=== PATIENT | female | born 1980 | race Caucasian/White ===

== ENCOUNTER 2017-07-14 13:33 | Emergency (ER) | payer SELFPAY ==
[~2017-07-14] VITALS: Ht 172.7 cm; Wt 99.8 kg
[~2017-07-14 13:33] MED LIST: AMITRIPTYLINE; AMLO5TAB2 PO; FERR134T PO; HCTZ; HYDR25TA4 PO; LEVO150T6 PO; LEVOTHYROXINE; LISINOPRIL; LISINOPRIL PO; MTF500T PO; VERA180C2 PO
[2017-07-14] MEDS ORDERED: NS IV 1000 ML 1,000 ML IV ONE (14:13)
--- NOTE | 2017-07-14 14:25 | ED General ---
General Chief Complaint: Dizziness/Syncope Stated Complaint: DIZZINESS, [place] Nursing Triage Note: c/o dizziness. Feels like room is spinning. Nausea reported. Onset Sunday. Seen by Dr. Angel on Sun and started on Dexamethasone and Zofran. Nursing Sepsis Screen: No Definite Risk Source of Information: Patient Exam Limitations: No Limitations History of Present Illness Time Seen by Provider: 14:05 Initial Comments Here with report of dizziness and nausea that has been going on for 4 days. Seen by her primary care provider and started on Zofran and was also given a steroid. States that it was a little better but now worse today. She took one of her Zofran dose for the nausea today and that helped some but she is still dizzy. She does admit to being diabetic and having high blood pressure that is not well-controlled currently because she's not been able to take her meds because of the nausea. He does admit to having urinary tract symptoms over the last 3 weeks but states that has been a little better recently. Admits that she has not urinated much today. Last bowel movement was a few days ago as well. Timing/Duration: 4-5 Days Severity: Moderate Associated Systoms: No Chest Pain, No Cough, No Fever/Chills, Nausea/Vomiting, No Shortness of Air, No Weakness Allergies and Home Medications Allergies Coded Allergies: Penicillins (Unverified Adverse Reaction, Mild, RASH, 02/23/10) Home Medications Amlodipine Besylate 5 Mg Tablet, 5 MG PO DAILY, #60 Prescribed by: RACHID GOTTI on 05/28/16 1032 Ferrous Sulfate 134 Mg Tablet, 134 MG PO BID, #60 Prescribed by: NICOLA CROWDER on 05/28/16 1223 Hydrochlorothiazide 25 Mg Tablet, 25 MG PO DAILY, #60 Prescribed by: RACHID GOTTI on 05/28/16 1034 Levothyroxine Sodium 150 Mcg Tablet, 150 MCG PO DAILY, #60 Prescribed by: RACHID GOTTI on 05/28/16 1037 Metformin Hcl 500 Mg Tab, 1,000 MG PO BID, (Reported) Verapamil Hcl 180 Mg Cap24h.pel, 1 EACH PO BID, (Reported) Constitutional: No chills, dizziness, No fever, malaise EENTM: nose congestion, throat pain, other (bilateral sinus pain) Respiratory: No cough, No short of breath Cardiovascular: No chest pain, No edema, No palpitations Gastrointestinal: nausea, No vomiting Genitourinary: see HPI, decreased output, dysuria Musculoskeletal: no symptoms reported Skin: no symptoms reported All Other Systems Reviewed Negative Unless Noted: Yes Past Amegifo-Bycvdx-Idhddb Hx Patient Social History Alcohol Use: Denies Use Recreational Drug Use: No Smoking Status: Former Smoker Type Used: Cigarettes Former Smoker, Quit: Jun 19, 2003 2nd Hand Smoke Exposure: Yes Recent Foreign Travel: No Contact w/Someone Who Travel: No Recent Infectious Disease Expo: No Recent Hopitalizations: No Seasonal Allergies Seasonal Allergies: No Surgeries History of Surgeries: No Respiratory History of Respiratory Disorde: No Cardiovascular History of Cardiac Disorders: Yes Cardiac Disorders: Hypertension Neurological History of Neurological Disord: No Reproductive System Hx Reproductive Disorders: Yes Female Reproductive Disorders: Menstrual Problems, Polycystic Ovarian Dis Gastrointestinal History of Gastrointestinal Di: No Musculoskeletal History of Musculoskeletal Dis: No Endocrine History of Endocrine Disorders: Yes Endocrine Disorders: Hypothyroidsim, Diabetes, Non-Insulin dep HEENT Loss of Vision: Denies Hearing Impairment: Denies Cancer History of Cancer: No Psychosocial History of Psychiatric Problem: No Integumentary History of Skin or Integumenta: No Blood Transfusions History of Blood Disorders: No Adverse Reaction to a Blood Tr: No Reviewed Nursing Assessment Reviewed/Agree w Nursing PMH: Yes Family Medical History Significant Family History: Hypertension Family Medial History: Arthritis 19 FATHER Kidney disease 19 FATHER Thyroid disease 19 FATHER Physical Exam Vital Signs Vital Sign - Last 12Hours 07/14/17 13:51 Temp 97.4 Pulse 70 Resp 18 B/P (MAP) 181/104 Pulse Ox 98 Capillary Refill : Less Than 3 Seconds General Appearance: No Apparent Distress, WD/WN HEENT: PERRL/EOMI, Pharynx Normal, Pharyngeal Erythema, TM Abnormal (L) ( bulging), TM Abnormal (R) (bulging), No Tonsillar Exudate, Other (no nystagmus noted) Neck: Non Tender, Supple Respiratory: Lungs Clear, Normal Breath Sounds Cardiovascular: Regular Rate, Rhythm, No Murmur Gastrointestinal: Non Tender, Soft Back: Normal Inspection, No CVA Tenderness, No Vertebral Tenderness Extremity: Normal Range of Motion, Non Tender Neurologic/Psychiatric: Alert, Oriented x3, Normal Mood/Affect Skin: Normal Color, Warm/Dry Progress/Results/Core Measures Results/Orders Lab Results Laboratory Tests Test 07/14/17 14:30 07/14/17 14:45 Range/Units Urine Color YELLOW Urine Clarity SLIGHTLY CLOUDY Urine pH 6 5-9 Urine Specific [place] 1.010 L 1.016-1.022 Urine Protein 1+ H NEGATIVE Urine Glucose (UA) 2+ H NEGATIVE Urine Ketones NEGATIVE NEGATIVE Urine Nitrite NEGATIVE NEGATIVE Urine Bilirubin NEGATIVE NEGATIVE Urine Urobilinogen NORMAL NORMAL MG/DL Urine Leukocyte Esterase 1+ H NEGATIVE Urine RBC (Auto) NEGATIVE NEGATIVE Urine RBC NONE /HPF Urine WBC RARE /HPF Urine Squamous Epithelial Cells 2-5 /HPF Urine Crystals NONE /LPF Urine Bacteria TRACE /HPF Urine Casts NONE /LPF Urine Mucus NEGATIVE /LPF Urine Culture Indicated NO White Blood Count 12.6 H 4.3-11.0 10^3/uL Red Blood Count 5.25 4.35-5.85 10^6/uL Hemoglobin 14.0 11.5-16.0 G/DL Hematocrit 42 35-52 % Mean Corpuscular Volume 79 L 80-99 FL Mean Corpuscular Hemoglobin 27 25-34 PG Mean Corpuscular Hemoglobin Concent 34 32-36 G/DL Red Cell Distribution Width 17.1 H 10.0-14.5 % Platelet Count 192 130-400 10^3/uL Mean Platelet Volume 11.7 H 7.4-10.4 FL Neutrophils (%) (Auto) 67 42-75 % Lymphocytes (%) (Auto) 27 12-44 % Monocytes (%) (Auto) 6 0-12 % Eosinophils (%) (Auto) 0 0-10 % Basophils (%) (Auto) 0 0-10 % Neutrophils # (Auto) 8.5 H 1.8-7.8 X 10^3 Lymphocytes # (Auto) 3.4 1.0-4.0 X 10^3 Monocytes # (Auto) 0.7 0.0-1.0 X 10^3 Eosinophils # (Auto) 0.0 0.0-0.3 10^3/uL Basophils # (Auto) 0.0 0.0-0.1 10^3/uL Sodium Level 139 135-145 MMOL/L Potassium Level 3.8 3.6-5.0 MMOL/L Chloride Level 103 98-107 MMOL/L Carbon Dioxide Level 27 21-32 MMOL/L Anion Gap 9 5-14 MMOL/L Blood Urea Nitrogen 16 7-18 MG/DL Creatinine 0.79 0.60-1.30 MG/DL Estimat Glomerular Filtration Rate > 60 BUN/Creatinine Ratio 20 Glucose Level 129 H 70-105 MG/DL Calcium Level 9.9 8.5-10.1 MG/DL Magnesium Level 1.7 L 1.8-2.4 MG/DL Total Bilirubin 0.7 0.1-1.0 MG/DL Aspartate Amino Transf (AST/SGOT) 61 H 5-34 U/L Alanine Aminotransferase (ALT/SGPT) 71 H 0-55 U/L Alkaline Phosphatase 97 40-136 U/L C-Reactive Protein High Sensitivity 0.38 0.00-0.50 MG/DL Total Protein 8.9 H 6.4-8.2 GM/DL Albumin 4.3 3.2-4.5 GM/DL Thyroid Stimulating Hormone (TSH) 3.10 0.35-4.94 UIU/ML My Orders Orders - TAYE DIAZ MD Cbc With Automated Diff (07/14/17 14:13) Comprehensive Metabolic Panel (07/14/17 14:13) Hs C Reactive Protein (07/14/17 14:13) Magnesium (07/14/17 14:13) Thyroid Stimulating Hormone (07/14/17 14:13) Ua Culture If Indicated (07/14/17 14:13) Saline Lock/Iv-Start (07/14/17 14:13) Ns Iv 1000 Ml (Sodium Chloride 0.9%) (07/14/17 14:13) Medications Given in ED Current Medications Medications Dose Ordered Sig/Mariana Route Start Time Stop Time Status Last Admin Dose Admin Sodium Chloride 1,000 ml @ 0 mls/hr Q0M ONCE IV 07/14/17 14:13 07/14/17 14:15 DC 07/14/17 14:30 1,000 MLS/HR Vital Signs/I&O Vital Sign - Last 12Hours 07/14/17 13:51 Temp 97.4 Pulse 70 Resp 18 B/P (MAP) 181/104 Pulse Ox 98 Blood Pressure Mean: 129 Progress Note : Progress Note Seen and evaluated. Due to the length of time for the symptoms, IV, labs, UA and normal saline 1 L bolus ordered. We will get a CT head to evaluate for sinusitis given moderate nasal congestion and pharyngeal erythema. Monitor patient. Patient declined CT scan. Monitor patient. 1545: Labs reviewed with the patient. We will go ahead and treat for possible sinusitis given the patient's tenderness and purulent discharge from the nose. She reports penicillin allergy but then states that she can take amoxicillin and has successfully without any problems. She has to pay enrique for her medicines. We will initiate Augmentin 500 twice a day. She is to follow-up with Dr. Angel earlier this week for recheck and further evaluation. Copy of chart for Dr. Angel. Discharged home with return precautions. Patient verbalize understanding instructions and agreement with plan. Departure Impression Impression: Primary Impression: Sinusitis, acute Qualified Codes: J01.90 - Acute sinusitis, unspecified Additional Impression: Dizziness Disposition: HOME, SELF-CARE Condition: Stable Departure-Patient Inst. Decision time for Depature: 15:54 Referrals: VICENTE ANGEL MD (PCP/Family) Primary Care Physician Patient Instructions: Sinusitis, Adult (DC), Vertigo (a Type of Dizziness) (DC) Add. Discharge Instructions: All discharge instructions reviewed with patient and/or family. Voiced understanding. Take medications as directed. You may stop the Dramamine. You may take meclizine 25 mg every 8 hours as needed for dizziness. You can get this over- the-counter. You can ask the pharmacist to assist you with finding the medicine at the pharmacy. Drink plenty of fluids. Return for worse pain, fever , vomiting, weakness, breathing problems or other concerns as needed. Follow- up with Dr. Angel in 2-3 days for recheck and further evaluation. Scripts Amoxicillin/Potassium Clav (Augmentin 500-125 Tablet) 1 Each Tablet 1 EACH PO BID, #14 TAB Prov: TAYE DIAZ MD 07/14/17 Copy Copies To 1: VICENTE ANGEL MD, TIMOTHY D MD Jul 14, 2017 14:25
[2017-07-14 14:49] LABS: BILIRUBIN,URINE NEGATIVE (NEGATIVE); KETONES,URINE NEGATIVE (NEGATIVE); LEUKOCYTE ESTERASE ,URINE 1+ (NEGATIVE); NITRITE,URINE NEGATIVE (NEGATIVE); PH,URINE 6 (5-9); PROTEIN,URINE 1+ (NEGATIVE); UROBILINOGEN,URINE NORMAL (NORMAL)
[2017-07-14 14:51] LABS: BASOPHILS % (AUTO) 0 % (0-10); EOSINOPHILS % (AUTO) 0 % (0-10); LYMPHOCYTES # (AUTO) 3.4 X 10^3 (1.0-4.0); LYMPHOCYTES % (AUTO) 27 % (12-44); MEAN CORPUSCULAR HEMOGLOBIN 27 PG (25-34); MEAN CORPUSCULAR HGB CONC 34 G/DL (32-36); MEAN CORPUSCULAR VOLUME 79 FL (80-99); MEAN PLATELET VOLUME 11.7 FL (7.4-10.4); MONOCYTES # (AUTO) 0.7 X 10^3 (0.0-1.0); MONOCYTES % (AUTO) 6 % (0-12); NEUTROPHILS # (AUTO) 8.5 X 10^3 (1.8-7.8); NEUTROPHILS % (AUTO) 67 % (42-75); PLATELET COUNT 192 10^3/uL (130-400); RED BLOOD COUNT 5.25 10^6/uL (4.35-5.85); RED CELL DISTRIBUTION WIDTH 17.1 % (10.0-14.5); WHITE BLOOD COUNT 12.6 10^3/uL (4.3-11.0)
[2017-07-14 14:58] LABS: WBC,URINE RARE /HPF
[2017-07-14 15:09] LABS: ALANINE AMINOTRANSFERASE 71 U/L (0-55); ALBUMIN 4.3 GM/DL (3.2-4.5); ANION GAP 9 MMOL/L (5-14); ASPARTATE AMINO TRANSFERASE 61 U/L (5-34); BILIRUBIN,TOTAL 0.7 MG/DL (0.1-1.0); BLOOD UREA NITROGEN 16 MG/DL (7-18); BUN/CREATININE RATIO 20; CALCIUM 9.9 MG/DL (8.5-10.1); CARBON DIOXIDE 27 MMOL/L (21-32); CHLORIDE 103 MMOL/L (98-107); CREATININE SERUM 0.79 MG/DL (0.60-1.30); GFR ESTIMATED > 60; GLUCOSE 129 MG/DL (70-105); MAGNESIUM 1.7 MG/DL (1.8-2.4); POTASSIUM 3.8 MMOL/L (3.6-5.0); SODIUM 139 MMOL/L (135-145); TOTAL PROTEIN 8.9 GM/DL (6.4-8.2); hs C REACTIVE PROTEIN 0.38 MG/DL (0.00-0.50)
[2017-07-14] MEDS ORDERED: AMOX-355 PO (15:56)
[2017-07-14 16:09] VITALS: BP 162/90
== END 2017-07-14 16:09 | disposition home or self-care (01) ==
LOC: EDUNIT# 13:33 → ER 13:34
DX: J01.90 Acute sinusitis, unspecified (principal); R42 Dizziness and giddiness; I10 Essential (primary) hypertension; E03.9 Hypothyroidism, unspecified; E11.9 Type 2 diabetes mellitus without complications; Z87.448 Personal history of other diseases of urinary system; Z79.84 Long term (current) use of oral hypoglycemic drugs; Z87.891 Personal history of nicotine dependence; Z91.14 Patient's other noncompliance with medication regimen
CPT/HCPCS: 36415; 80053; 81000; 83735; 84443; 85025; 86141; 96360

== ENCOUNTER 2017-07-22 19:42 | Emergency (ER) | payer SELFPAY ==
[~2017-07-22] VITALS: Ht 172.7 cm; Wt 99.8 kg
[~2017-07-22 19:42] MED LIST changes: +AMOX-355 PO
--- NOTE | 2017-07-22 20:27 | ED EENT ---
History of Present Illness General Chief Complaint: General Problems/Pain Stated Complaint: THROAT/EAR PAIN Nursing Triage Note: PT TO ED 9 W/ S.O. FOR C/O SORE THROAT, EAR PAIN, CONGESTION. PT REPORTS HAS BEEN SEEN MULTIPLE TIMES OVER THE PAST FEW WEEKS FOR C/O VERTIGO/INNER EAR INFECTION. History of Present Illness Time seen by provider: 20:30 Initial Comments 36-year-old female presents for right ear pain, congestion and sore throat. She has previously seen here on July 142016 and prescribed Augmentin for 7 days. She reports taking all the medication as prescribed. Today she took Tylenol mid afternoon, Advil prior to arrival and Mucinex this morning. She reports that the vertigo is improving, she is able to ambulate without a headache or dizziness. Timing/Duration: intermittent Location: ear (R), throat, facial Prearrival Treatment: over the counter meds Associated Symptoms: No cough, facial pain/swelling, No fever, No malaise, nasal congestion/drainage, No sinus infection, sore throat, No tooth pain Allergies and Home Medications Allergies Coded Allergies: Penicillins (Unverified Adverse Reaction, Mild, RASH, 02/23/10) Home Medications Amlodipine Besylate 5 Mg Tablet, 5 MG PO DAILY, #60 Prescribed by: RACHID GOTTI on 05/28/16 1032 Amoxicillin/Potassium Clav 1 Each Tablet, 1 EACH PO BID, #14 Prescribed by: TAYE DIAZ on 07/14/17 1556 Ferrous Sulfate 134 Mg Tablet, 134 MG PO BID, #60 Prescribed by: NICOLA CROWDER on 05/28/16 1223 Hydrochlorothiazide 25 Mg Tablet, 25 MG PO DAILY, #60 Prescribed by: RACHID GOTTI on 05/28/16 1034 Levothyroxine Sodium 150 Mcg Tablet, 150 MCG PO DAILY, #60 Prescribed by: RACHID GOTTI on 05/28/16 1037 Metformin Hcl 500 Mg Tab, 1,000 MG PO BID, (Reported) Prednisone 20 Mg Tab, 20 MG PO BID, #8 Ref 0 Prescribed by: CAROLYN LEE on 07/22/17 2034 Verapamil Hcl 180 Mg Cap24h.pel, 1 EACH PO BID, (Reported) Review of Systems Constitutional: no symptoms reported, see HPI Ears: See HPI, Pain Throat: see HPI, pain, painful swallowing All Other Systems Reviewed Negative Unless Noted: Yes Past Lwpbagb-Gfjabi-Ksitxj Hx Patient Social History Alcohol Use: Denies Use Recreational Drug Use: No Smoking Status: Former Smoker Type Used: Cigarettes Former Smoker, Quit: Jun 19, 2003 2nd Hand Smoke Exposure: Yes Recent Foreign Travel: No Contact w/Someone Who Travel: No Recent Infectious Disease Expo: No Recent Hopitalizations: No Physical Abuse: No Sexual Abuse: No Mistreated: No Fear: No Seasonal Allergies Seasonal Allergies: No Surgeries History of Surgeries: No Respiratory History of Respiratory Disorde: No Cardiovascular History of Cardiac Disorders: Yes Cardiac Disorders: Hypertension Neurological History of Neurological Disord: No Reproductive System Hx Reproductive Disorders: Yes Female Reproductive Disorders: Menstrual Problems, Polycystic Ovarian Dis Gastrointestinal History of Gastrointestinal Di: No Musculoskeletal History of Musculoskeletal Dis: No Endocrine History of Endocrine Disorders: Yes Endocrine Disorders: Hypothyroidsim, Diabetes, Non-Insulin dep HEENT Loss of Vision: Denies Hearing Impairment: Denies Cancer History of Cancer: No Psychosocial History of Psychiatric Problem: No Suicide Risk Score: 0 Integumentary History of Skin or Integumenta: No Blood Transfusions History of Blood Disorders: No Adverse Reaction to a Blood Tr: No Reviewed Nursing Assessment Reviewed/Agree w Nursing PMH: Yes Family Medical History Significant Family History: Hypertension Family Medial History: Arthritis 19 FATHER Kidney disease 19 FATHER Thyroid disease 19 FATHER Physical Exam Vital Signs Vital Sign - Last 12Hours 07/22/17 19:59 Temp 98.5 Pulse 98 Resp 20 B/P (MAP) 174/100 Pulse Ox 97 O2 Delivery Room Air General Appearance: WD/WN, no apparent distress Eyes: bilateral eye normal inspection, bilateral eye PERRL, bilateral eye EOMI Ears: bilateral ear auricle normal, bilateral ear canal normal, bilateral ear TM normal (with clear effusion but no bulging of the TM) Nose: normal inspection, No active bleeding, No discharge Mouth/Throat: normal mouth inspection, pharynx normal (with clear postnasal drainage) Neck: non-tender, full range of motion, supple, normal inspection, No lymphadenopathy (R), No lymphadenopathy (L) Cardiovascular: normal peripheral pulses, regular rate, rhythm Respiratory: chest non-tender, lungs clear, normal breath sounds Gastrointestinal: normal bowel sounds, non tender, soft Neurologic/Psychiatric: no motor/sensory deficits, alert, normal mood/affect, oriented x 3 Skin: normal color, warm/dry Progress/Results/Core Measures Results/Orders My Orders Orders - CAROLYN LEE Prednisone Tablet (Deltasone Tablet) (07/22/17 20:45) Medications Given in ED Current Medications Medications Dose Ordered Sig/Mariana Route Start Time Stop Time Status Last Admin Dose Admin Prednisone 20 mg ONCE ONCE PO 07/22/17 20:45 07/22/17 20:46 DC 07/22/17 20:40 20 MG Vital Signs/I&O Vital Sign - Last 12Hours 07/22/17 19:59 Temp 98.5 Pulse 98 Resp 20 B/P (MAP) 174/100 Pulse Ox 97 O2 Delivery Room Air Blood Pressure Mean: 124 Departure Impression Impression: Primary Impression: Vertigo Additional Impression: Sinus congestion Disposition: HOME, SELF-CARE Condition: Stable Departure-Patient Inst. Decision time for Depature: 20:25 Referrals: LISA BRAVO DO (PCP) Primary Care Physician VICENTE ANGEL MD (Family) Primary Care Physician Patient Instructions: Sinusitis, Adult (DC) Add. Discharge Instructions: Mixed 2 tablespoons of apple cider vinegar with mother in a small cup of warm water with honey and lemon. Drink twice daily. Christ med sinus rinse irrigation use 3-4 times daily for congestion. Take steroids as prescribed. Follow-up with Dr. Angel in 2-3 days if symptoms are not improving Turned to emergency department if symptoms worsen, temperature greater than 101 , or new problems. Alternate 600 mg ibuprofen and 650 mg of Tylenol every 4 hours for pain or fever. Vestibular exercises, look up on the Internet for home therapy All discharge instructions reviewed with patient and/or family. Voiced understanding. Scripts Prednisone (Prednisone) 20 Mg Tab 20 MG PO BID, #8 TAB 0 Refills Prov: CAROLYN LEE 07/22/17 Copy Copies To 1: VICENTE ANGEL MD, AMY ARNP Jul 22, 2017 20:27
[2017-07-22] MEDS ORDERED: PRD20T PO (20:34)
[2017-07-22 20:40] VITALS: BP 161/99
[2017-07-22] MEDS ORDERED: predniSONE 20 MG TAB PO ONE (20:45)
== END 2017-07-22 20:40 | disposition home or self-care (01) ==
LOC: EDUNIT# 19:42 → ER 19:45
DX: R09.81 Nasal congestion (principal); R42 Dizziness and giddiness; E03.9 Hypothyroidism, unspecified; E11.9 Type 2 diabetes mellitus without complications; I10 Essential (primary) hypertension; Z87.42 Personal history of other diseases of the female genital tract; Z87.891 Personal history of nicotine dependence; Z79.84 Long term (current) use of oral hypoglycemic drugs
CPT/HCPCS: 99283

== ENCOUNTER 2018-08-02 18:03 | Emergency (ER) | payer SELFPAY ==
[~2018-08-02] VITALS: Ht 172.7 cm; Wt 102.1 kg
[~2018-08-02 18:03] MED LIST changes: -AMLO5TAB2 PO; +AMLO5TAB7 PO; +CEFU250T80 PO; +GLIM2TAB PO; +LISI-556 PO; +METF-397 PO; +PRD20T PO
--- NOTE | 2018-08-02 20:21 | Diagnostic Imaging Report ---
INDICATION: Cough and wheezing. COMPARISON STUDY: None. FINDINGS: Two views of the chest demonstrate the lungs to be clear. The heart, mediastinum, pulmonary vascularity and visualized bony thorax are normal. IMPRESSION: Normal chest. Dictated by: Dictated on workstation # [id number]
[2018-08-02] MEDS ORDERED: RX-ALBUTEROL INHALER (PROAIR) 8 GM IH STA (20:46)
--- NOTE | 2018-08-02 20:46 | ED General ---
General Chief Complaint: Cough/Cold/Flu Symptoms Stated Complaint: COUGH/SOB Nursing Triage Note: PT ARRIVES TO ED ROOM #9 WITH C/O COUGH/COLD/FLU SYMPTOMS. PT STATES THAT SHE IS EXPERIENCING RUNNY NOSE, FEVER, PRODUCTIVE COUGH (THICK YLW/GREEN), HEAD CONGESTION, SOB, AND WHEEZING. PT STATES SYMPTOMS STARTED YESTERDAY EVENING. PT'S CURRENT TEMP 100.0. Nursing Sepsis Screen: Possible Sepsis Risk Source of Information: Patient Exam Limitations: No Limitations History of Present Illness Date Seen by Provider: Aug 02, 2018 Time Seen by Provider: 19:42 Initial Comments This 37 year old woman presents to the ER with complaints of febrile illness with associated wheezing, cough, myalgia, night sweats, and sputum that started yesterday. She is a smoker. She is also a diabetic. Her primary care providers Dr. Bravo. Allergies and Home Medications Allergies Coded Allergies: No Known Drug Allergies (Unverified , 03/19/18) Home Medications Amlodipine Besylate 5 Mg Tablet, 5 MG PO DAILY, (Reported) Cefuroxime Axetil 250 Mg Tablet, 250 MG PO BID Prescribed by: LISA BRAVO on 07/30/17 0823 Glimepiride 2 Mg Tablet, 2 MG PO DAILY, (Reported) Hydrochlorothiazide 25 Mg Tablet, 25 MG PO DAILY, (Reported) Levothyroxine Sodium 150 Mcg Tablet, 150 MCG PO DAILY, (Reported) Lisinopril 5 Mg Tablet, 5 MG PO DAILY, (Reported) Metformin HCl 500 Mg Tablet, 1,000 MG PO BID, (Reported) TAKES 2 (500 MG) TABLETS Patient Home Medication List Home Medication List Reviewed: Yes Review of Systems Review of Systems Constitutional: see HPI EENTM: no symptoms reported Respiratory: see HPI Cardiovascular: no symptoms reported Gastrointestinal: no symptoms reported Genitourinary: no symptoms reported : No Musculoskeletal: see HPI Skin: no symptoms reported Psychiatric/Neurological: No Symptoms Reported Hematologic/Lymphatic: No Symptoms Reported Immunological/Allergic: no symptoms reported Past Wqhusmg-Hmarzx-Ejzenm Hx Past Med/Social Hx: Reviewed Nursing Past Med/Soc Hx Patient Social History Alcohol Use: Denies Use Recreational Drug Use: No Smoking Status: Current Everyday Smoker Type Used: Cigarettes Former Smoker, Quit: Jun 19, 2003 2nd Hand Smoke Exposure: Yes Recent Foreign Travel: No Contact w/Someone Who Travel: No Recent Infectious Disease Expo: No Recent Hopitalizations: No Physical Abuse: No Sexual Abuse: No Mistreated: No Fear: No Seasonal Allergies Seasonal Allergies: No Past Medical History Surgeries: No Respiratory: No Cardiac: Yes Hypertension Neurological: No Reproductive Disorders: Yes Female Reproductive Disorders: Menstrual Problems, Polycystic Ovarian Dis Genitourinary: No Gastrointestinal: No Musculoskeletal: No Endocrine: Yes Hypothyroidsim, Diabetes, Non-Insulin dep HEENT: No Loss of Vision: Denies Hearing Impairment: Denies Cancer: No Psychosocial: No Integumentary: No Blood Disorders: No (HX OF ANEMIA) Adverse Reaction/Blood Tranf: No Family Medical History Arthritis 19 FATHER Kidney disease 19 FATHER Thyroid disease 19 FATHER Hypertension Physical Exam Vital Signs Vital Signs - First Documented Capillary Refill : Less Than 3 Seconds Height, Weight, BMI Height: 5'8.00" Weight: 225lbs. 0.0oz. [id number]; 36.5 BMI Method:Stated General Appearance: No Apparent Distress, WD/WN HEENT: PERRL/EOMI, Normal ENT Inspection, Pharynx Normal Neck: Normal Inspection Respiratory: Lungs Clear, Normal Breath Sounds, No Accessory Muscle Use, No Respiratory Distress, Wheezing (With forced expiration) Cardiovascular: Regular Rate, Rhythm, No Edema, No Murmur Extremity: Normal Inspection, No Pedal Edema Neurologic/Psychiatric: Alert, Oriented x3, No Motor/Sensory Deficits, Normal Mood/Affect Skin: Normal Color, Warm/Dry Progress/Results/Core Measures Suspected Sepsis Recent Fever Within 48 Hours: Yes Infection Criteria Present: Suspected New Infection New/Unexplained Altered Menta: No Sepsis Screen: Possible Sepsis Risk SIRS Temperature:100.0 Pulse: 86 Respiratory Rate: 24 Blood Pressure 132 /55 Mean: 80 Results/Orders Micro Results My Orders Vital Signs/I&O Capillary Refill : Less Than 3 Seconds Blood Pressure Mean: 80 Point of Care Testing Urine -Bedside: Negative Progress Note : Progress Note Influenza screen was negative. Chest x-ray showed no evidence of pneumonia. Patient had wheezing and cough with forced expiration. She was dispensed with an inhaler and advised to quit smoking. Steroids were not given as patient has not tolerated them well in the past. Diagnostic Imaging Diagonstic Imaging: Xray Plain Films/CT/US/NM/MRI: chest Comments Chest x-ray viewed by me and report reviewed. See report below: NAME: LUCINA CHAMPION REC#: [id number] PT STATUS: REG ER : 1980 PHYSICIAN: CLIFF MATIAS MD ADMIT DATE: 08/02/18/ER Signed Date of Exam: 08/02/18 CHEST PA/LAT (2 VIEW) INDICATION: Cough and wheezing. COMPARISON STUDY: None. FINDINGS: Two views of the chest demonstrate the lungs to be clear. The heart, mediastinum, pulmonary vascularity and visualized bony thorax are normal. IMPRESSION: Normal chest. Dictated by: Dictated on workstation # [id number] Dict: 08/02/182017 Trans: 08/02/182021 Interpreted by: JAMIE JONES MD Electronically signed by: JAMIE JONES MD 08/02/182021 Departure Impression Primary Impression: Acute bronchitis Qualified Codes: J20.9 - Acute bronchitis, unspecified Disposition: HOME, SELF-CARE Condition: Stable Departure-Patient Inst. Decision time for Depature: 20:44 Referrals: LISA BRAVO DO (PCP/Family) Primary Care Physician Patient Instructions: Acute Bronchitis, Adult (DC) Add. Discharge Instructions: Drink plenty of clear liquids. Use your inhaler up to 2 puffs every 4 hours as needed for shortness of breath, uncontrolled cough, or wheezing. Quit smoking completely and immediately. Return to care if symptoms are worsening. For pain or fever you may take ibuprofen up to 600 mg every 6 hours as needed and/or Tylenol (acetaminophen) up to 1000 mg every 6 hours. You may use [id number] cough and cold medications with dextromethorphan ( DM). All discharge instructions reviewed with patient and/or family. Voiced understanding. CLIFF MATIAS MD Aug 02, 2018 20:45
[2018-08-02 21:10] VITALS: BP 143/70
== END 2018-08-02 21:10 | disposition home or self-care (01) ==
LOC: EDUNIT# 18:03 → ER 18:04
DX: J20.9 Acute bronchitis, unspecified (principal); I10 Essential (primary) hypertension; E03.9 Hypothyroidism, unspecified; E11.9 Type 2 diabetes mellitus without complications; D64.9 Anemia, unspecified; Z87.448 Personal history of other diseases of urinary system; Z79.84 Long term (current) use of oral hypoglycemic drugs; Z87.891 Personal history of nicotine dependence
CPT/HCPCS: 71046; 84703; 87804

== ENCOUNTER → 2021-08-04 | Outpatient (CLI) | payer SELFPAY ==
[~2021-08-04] MED LIST changes: +AMLO-250 PO; -AMLO5TAB7 PO; -GLIM2TAB PO; +GLIM2TAB4 PO; -LISI-556 PO; +LISI-729 PO
[2021-08-04 11:23] LABS: HEMATOCRIT 36 % (35-52); HEMOGLOBIN 11.8 g/dL (11.5-16.0); MEAN CORPUSCULAR HEMOGLOBIN 29 pg (25-34); MEAN CORPUSCULAR HGB CONC 33 g/dL (32-36); MEAN CORPUSCULAR VOLUME 88 fL (80-99); MEAN PLATELET VOLUME 11.1 fL (9.0-12.2); PLATELET COUNT 146 10^3/uL (130-400); WHITE BLOOD COUNT 5.4 10^3/uL (4.3-11.0)
[2021-08-04 11:35] LABS: ALBUMIN 4.1 GM/DL (3.2-4.5); BILIRUBIN,TOTAL 0.9 MG/DL (0.1-1.0); CALCIUM 9.8 MG/DL (8.5-10.1); CREATININE SERUM 0.72 MG/DL (0.60-1.30); TOTAL PROTEIN 8.1 GM/DL (6.4-8.2)
== END ==
LOC: LAB 10:59
PROVIDERS: ATTEND Family Medicine
DX: E11.9 Type 2 diabetes mellitus without complications (principal); I10 Essential (primary) hypertension; E78.5 Hyperlipidemia, unspecified
CPT/HCPCS: 36415; 80053; 80061; 83036; 85027